=== PATIENT | male | born 1990 | race Caucasian/White ===

== ENCOUNTER 2020-03-09 10:57 | Emergency (ER) | payer OTHER ==
[~2020-03-09] VITALS: Ht 180.3 cm; Wt 117.9 kg
[2020-03-09 11:12] VITALS: Ht 180.3 cm; Wt 117.9 kg
[2020-03-09 13:10] VITALS: BP 114/82
== END 2020-03-09 13:10 | disposition home or self-care (01) ==
LOC: ED 10:57
DX: L03.116 Cellulitis of left lower limb (principal)
CPT/HCPCS: J2001

== ENCOUNTER 2020-03-12 10:25 | Inpatient (IN) | payer OTHER ==
[~2020-03-12] VITALS: Ht 180.3 cm; Wt 116.2 kg
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
[2020-03-12 11:28] LABS: CREATININE SERUM 0.9 mg/dL (0.7-1.3); GFR1 > 60 mL/min; GLUCOSE SERUM 102 mg/dL (74-106)
[2020-03-12 11:31] LABS: BASOPHIL % 0.4 % (0-2); PLATELET COUNT 346 x10^3mcL (130-400); RED CELL DISTRIBUTION WIDTH 13.1 % (11.5-14.5)
[2020-03-12 12:07] LABS: CALCIUM 9.2 mg/dL (8.5-10.1); CHLORIDE SERUM 103 mmol/L (98-107); SODIUM SERUM 138 mmol/L (136-145)
[2020-03-12 12:11] LABS: ALKALINE PHOSPHATASE 75 U/L (46-116); ALT/SGPT 59 U/L (16-63); AST/SGOT 48 U/L (15-37); BILIRUBIN TOTAL 0.46 mg/dL (0.20-1.00)
[2020-03-12 12:13] LABS: ALBUMIN 3.3 g/dL (3.4-5.0); TOTAL PROTEIN, SERUM 8.3 g/dL (6.4-8.2)
--- NOTE | 2020-03-12 12:26 | NUR ---
ANTIBIOTICS IN PROGRESS, STATED NOT IN PAIN, HAD HIS LUNCH AND TOLERATED
[2020-03-12] MEDS ORDERED: IBU600 M2 (13:28)
--- NOTE | 2020-03-12 14:00 | NUR ---
RECEIVED PT FROM ED. REPORT GIVEN BY FREEMAN WAN. PT IS AAOX4. RESP EVEN AND UNLABORED. NO DISTRESS NOTED. IV CATH LFA 22G WITH IV ABX RUNNING. MED SURG PT. VS; 99.1, 72, 18, 126/80 (90), 98% ON R/A. DENIES PAIN AT THIS TIME. PT HAS R LOWER LEG ANTERIOR WOUND. WOUND CX AND MRSA CX TAKEN AND SENT TO LAB. WOUND COVERED WITH ADAPTIC AND KERLIX. PT ORIENTED TO ROOM AND CALL LIGHT. BED IN LOWEST POSITION. CALL LIGHT WITHIN REACH. WILL CONTINUE TO MONITOR.
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
[2020-03-12 14:23] VITALS: BP 126/80
[2020-03-12 14:33] VITALS: Ht 180.3 cm; Wt 116.2 kg
--- NOTE | 2020-03-12 14:34 | NUR ---
RECEIVED ORDER FOR WOUND CARE CONSULT AND WOULD CARE ORDERS FROM LACEY العلي. ORDERS NOTED AND CARRIED OUT.
--- NOTE | 2020-03-12 17:02 | NUR ---
ZOSYN IVPB INITIATED. PT RLE ELEVATED ON PILLOW. DENIES PAIN. CALL LIGHT WITHIN REACH.
[2020-03-12 17:19] VITALS: BP 126/76
--- NOTE | 2020-03-12 18:01 | NUR ---
RESP EVEN AND UNLABORED. NO DISTRESS NOTED. DENIES PAIN. RLE ELEVATED ON PILLOW, DRESSING INTACT. WILL ENDORSE ALL CARE TO NOC RN.
--- NOTE | 2020-03-12 19:05 | NUR ---
RECEIVED PT LAYING IN BED WITH HOB ELEVATED. BREATHING IS EVEN AND UNLABORED ON RA. NO RESP DISTRESS NOTED. DENIES N/V/D/C. VOIDS FREELY. AMBULATORY. L LOWER EXTREMITY WITH ADAPTIC AND KERLIX, CDI. DENIES ANY PAIN AT THIS TIME. IV TO LFA PATENT AND INTACT. NO ERYTHEMA NOTED. WILL CONTINUE TO MONITOR.
[2020-03-12 20:07] VITALS: BP 122/85
--- NOTE | 2020-03-12 21:59 | NUR ---
PER PHARMACIST, GLYNN FOLEY TO ADMINISTER VANCO.
--- NOTE | 2020-03-12 22:00 | NUR ---
ROUTINE MEDICATIONS ADMINSITERED AND TOLERATED WELL. NO ACUTE DISTRESS NOTED. DENIES ANY PAIN OR SOB. WILL CONTINUE TO MONITOR.
--- NOTE | 2020-03-12 22:35 | NUR ---
PT C/O PAIN TO IV SITE, HARD TO FLUSH. IV TO LFA DC'D, CATHETER INTACT. NEW IV INSERTED TO RFA, FLUSHING WELL WITH 10 CC NS. DENIES ANY DISCOMFORT AT NEW IV SITE. WILL CONTINUE TO MONITOR.
--- NOTE | 2020-03-13 00:43 | NUR ---
PT RESTING COMFORTABLY. NO ACUTE DISTRESS NOTED. BREATHING IS EVEN AND UNLABORED ON RA. NO RESP DISTRESS NOTED. WILL CONTINUE TO MONITOR.
--- NOTE | 2020-03-13 04:54 | NUR ---
PT RESTING COMFORTABLY. NO ACUTE DISTRESS NOTED. WILL CONTINUE TO MONITOR.
[2020-03-13 06:24] VITALS: BP 98/51
--- NOTE | 2020-03-13 06:29 | NUR ---
COMFORT AND SAFETY MEASURES MAINTAINED. ALL NEEDS ASSESSED AND ATTENDED TO. WILL CONTINUE TO MONITOR AND ENDORSE CARE TO KATERINE SHIFT NURSE.
[2020-03-13 07:07] LABS: BASOPHIL % 0.5 % (0-2); PLATELET COUNT 347 x10^3mcL (130-400); RED CELL DISTRIBUTION WIDTH 12.7 % (11.5-14.5)
[2020-03-13 07:14] LABS: CALCIUM 9.4 mg/dL (8.5-10.1); CARBON DIOXIDE 28.7 mmol/L (21-32); CHLORIDE SERUM 104 mmol/L (98-107); CREATININE SERUM 0.9 mg/dL (0.7-1.3); GFR1 > 60 mL/min; GLUCOSE SERUM 83 mg/dL (74-106); POTASSIUM SERUM 3.8 mmol/L (3.5-5.1); SODIUM SERUM 140 mmol/L (136-145)
--- NOTE | 2020-03-13 07:30 | NUR ---
PT IS AAOX4. MED SURG PT. LLE WOUND COVERED WITH CDI DRESSING. PT EDUCATED THAT HE WILL HAVE BONE SCAN TODAY, RISK, BENEFITS AND S/E. PT VERBALIZED UNDERSTANDING. IV CATH S/L TO RFA. SITE WNL. PT DENIES PAIN AT THIS TIME. RLE ELEVATED ON PILLOW. CALL LIGHT WITHIN REACH. BED IN LOWEST POSITION.
[2020-03-13 07:50] VITALS: BP 104/56
--- NOTE | 2020-03-13 08:20 | NUR ---
PT TAKEN FOR BONE SCAN AT THIS TIME. IV CATH S/L. SITE WNL.
--- NOTE | 2020-03-13 09:18 | NUR ---
PT BACK FROM BONE SCAN AT THIS TIME. PT EDUCATED TO DRINK EXTRA FLUIDS TO HELP FLUSH DYE FROM SYSTEM. PT VERBALIZED UNDERSTANDING.
--- NOTE | 2020-03-13 09:26 | NUR ---
VANCO IVPB INITIATED. NORCO PO PRN GIVEN FOR LLE PAIN, NECK AND BACK PAIN 04/09. EXTRA FLUIDS GIVEN AND ENCOURAGED. LLE ELEVATED ON PILLOW. RESP EVEN AND UNLABORED. WILL CONTINUE TO MONITOR. CALL LIGHT WITHIN REACH.
--- NOTE | 2020-03-13 11:00 | NUR ---
PT TAKEN FOR BONE SCAN SECOND IMAGING AT THIS TIME.
--- NOTE | 2020-03-13 11:58 | NUR ---
PT BACK FROM BONE SCAN. DENIES PAIN. RESP EVEN AND UNLABORED. NO DISTRESS NOTED.
[2020-03-13 12:26] VITALS: BP 124/79
--- NOTE | 2020-03-13 13:43 | NUR ---
DRESSING CX PERFORMED TO LLE. DRESSING REMOVED, SITE CLEANSED WITH N/S, PATTED DRY. COVERED WITH ADAPTIC DRESSING AND KERLIX. MINIMAL SEROSANGUINOUS, NONODOROUS DRAINAGE NOTED. PT TOLERATED PROCEDURE WELL. CALL LIGHT WITHIN REACH. BED IN LOWEST POSITION.
--- NOTE | 2020-03-13 15:30 | NUR ---
PT SLEEPING BUT EASILY AROUSABLE TO VERBAL STIMULI. RESP EVEN AND UNLABORED. LLE ELEVATED ON PILLOW. CALL LIGHT WITHIN REACH.
[2020-03-13 15:44] VITALS: BP 121/73
--- NOTE | 2020-03-13 18:29 | NUR ---
PT INFORMED THAT A PODIATRY CONSULT HAS BEEN ORDERED FOR HIM. PT VERBALIZED UNDERSTANDING. RESP EVEN AND UNLABORED. NO DISTRESS NOTED. LLE ELEVATED ON PILLOW. IV CATH TO RFA PATENT. SITE WNL. PT DENIES PAIN. CALL LIGHT WITHIN REACH. BED IN LOWEST POSITION. WILL ENDORSE ALL CARE TO NOC RN.
--- NOTE | 2020-03-13 18:53 | NUR ---
DR. CENTENO MET WITH PT AND STATED PT IS FINE TO DISCHARGE FOR PODIATRY STANDPOINT. LEONEL'S COMPRESSION BOOT WAS APPLLIED TO LLE. NORCO PO PRN GIVEN FOR PAIN 04/[address] CENTENO STATED HIS OFFICE WITH FOLLOW UP WITH PT AND SET AN APPOINTMENT FOR PT TO BE SEEN ONCE DISCHARGED FROM HOSPITAL.
--- NOTE | 2020-03-13 19:40 | NUR ---
PT SEEN, RESTING IN BED, ALERT AND ORIENTED, DENIES HEADACHE OR DIZZINESS, BREATHING EVEN AND UNLABORED, LUNG SOUNDS CLEAR, ON ROOM AIR WITH NO RESP DISTRESS NOTED, MEDSURG PT, DENIES CHEST PAIN, PULSES PALPABLE, EDEMA NOTED TO LLE, DRESSING TO LLE, MILD GENERALIZED WEAKNESS, ABD SOFT AND FLAT WITH ACTIVE BS, NO BM AT THIS TIME, DENIES ABD PAIN, VOIDING FREELY, NO DISTRESS NOTED, WILL KEEP TO MONITOR.
[2020-03-13 20:12] VITALS: BP 156/99
--- NOTE | 2020-03-14 05:40 | NUR ---
PT ASLEEP BUT EASILY AROUSABLE, SLEPT MOST OF NIGHT, LLE ELEVATED WITH PILLOW, NO PAIN MEDS GIVEN THROUGHOUT THE NIGHT, CONDITION NO CHANGE, NO DISTRESS NOTED, WILL KEEP TO MONITOR.
[2020-03-14 05:57] VITALS: BP 123/71
[2020-03-14 06:05] LABS: BASOPHIL % 0.5 % (0-2); PLATELET COUNT 360 x10^3mcL (130-400); RED CELL DISTRIBUTION WIDTH 12.8 % (11.5-14.5)
[2020-03-14 06:20] LABS: CALCIUM 9.1 mg/dL (8.5-10.1); CARBON DIOXIDE 31.5 mmol/L (21-32); CHLORIDE SERUM 104 mmol/L (98-107); GFR1 > 60 mL/min; GLUCOSE SERUM 91 mg/dL (74-106); SODIUM SERUM 140 mmol/L (136-145)
--- NOTE | 2020-03-14 07:08 | NUR ---
BEDSIDE REPORT HANDOFF GIVEN TO MARSHAL-RN, ALL QUESTIONS ANSWERED AND CONCERNS ADDRESSED.
--- NOTE | 2020-03-14 07:53 | NUR ---
RECEIVED PATIENT FROM FREEMAN LEI. PATIENT IN BED RESTING, NO COMPLAINTS OF PAIN. PATIENT AWARE THAT HE IS PLANNED FOR DISCHARGE TODAY. WILL WAIT FOR [employer] CARRIER ASSISTANT SEVERIANO TO ARRIVE AND SEE PATIENT. WILL PREPARE DISCHARGE IF NEEDED.
[2020-03-14 08:38] VITALS: BP 137/85; BP 149/100
[2020-03-14] MEDS ORDERED: BACTRIM DS1 TAB PO ×2 (09:28→09:30)
[2020-03-14] MEDS ORDERED: NORCO1 TA2 PO ×2 (09:29→09:30)
[2020-03-14 09:44] VITALS: BP 137/85
--- NOTE | 2020-03-14 10:27 | NUR ---
AUTOMATED LOGISTICS SPECIALIST SEVERIANO IN TO SEE PATIENT AND STATES PATIENT IS OK TO DISCHARGE. DISCHARGE ORDER COMPLETE, WORK NOTE WRITTEN PER REQUEST, PRESCRIPTIONS SENT TO PHARM. WILL DISCHARGE PATIENT TODAY.
--- NOTE | 2020-03-14 11:33 | NUR ---
DISCHARGE PACKET GIVEN AND EXPLAINED TO PATIENT. PATIENT AWARE TO FU WITH PODIATRY CLINIC AT [facility]. ADDRESS AND PHONE # PROVIDED. DR RIVERA ALSO IN TO SPEAK WITH PATIENT ABOUT FINAL DISCHARGE INSTRUCTIONS. PATIENT PRESCRIPTION EXPLAINED TO PATIENT, GIVEN "EXCUSE FROM WORK NOTE". PATIENT WITH BELONGINGS AND CRUTCHES ESCORTED DOWN STAIRS VIA WHEELCHAIR. ALL QUESTIONS ANSWERED AT THIS TIME.
--- NOTE | 2020-03-16 08:41 | NUR ---
WOUND CONSULT NOT DONE, PT. DISCHARGED.
== END 2020-03-14 11:45 | disposition home or self-care (01) | DRG 603 ==
LOC: ED 10:25 → MU 11:49
PROVIDERS: Emergency Medicine; ADMIT Internal Medicine; ATTEND Internal Medicine
DX: L03.116 Cellulitis of left lower limb (principal); I10 Essential (primary) hypertension; F12.90 Cannabis use, unspecified, uncomplicated; B95.61 Methicillin susceptible Staphylococcus aureus infection as the cause of diseases classified elsewhere; Z79.899 Other long term (current) drug therapy
CPT/HCPCS: 99406; G0378; J0696; J2543; J3370; J7040; J7050; J7060